=== PATIENT | female | born 1980 | race Caucasian/White ===

== ENCOUNTER 2016-10-30 20:26 | Emergency (ER) | payer BC ==
[2016-10-30 21:19] LABS: URINE APPEARANCE CLEAR; URINE BILIRUBIN NEGATIVE (NEGATIVE); URINE BLOOD TRACE-I (NEGATIVE); URINE COLOR YELLOW; URINE GLUCOSE (UA) NEGATIVE (NEGATIVE); URINE KETONE NEGATIVE (NEGATIVE); URINE LEUKOCYTE ESTERASE SMALL (NEGATIVE); URINE NITRITE NEGATIVE (NEGATIVE); URINE PROTEIN NEGATIVE (NEGATIVE); URINE UROBILINOGEN 0.2 E.U./dL (0.20 - 1.00)
[2016-10-30 21:28] LABS: BASO % 0.4 % (0-6); EOS % 1.7 % (0-6); GRAN % 59.9 % (47-80); HEMATOCRIT 40.2 % (35.0-47.0); HEMOGLOBIN 14.4 gm/dl (11.6-16.0); LYMPH % 31.3 % (16-45); MEAN CELL VOLUME 85.4 fl (81-97); MEAN CORPUSCULAR HEMOGLOBIN 30.6 pg (27-33); MEAN CORPUSCULAR HGB CONC 35.8 g/dl (32-36); MEAN PLATELET VOLUME 9.1 fl (7.4-10.4); MONO % 6.7 % (0-9); PLATELET COUNT 297 K/uL (130-400); RED BLOOD COUNT 4.71 M/uL (3.80-5.40); RED CELL DISTRIBUTION WIDTH 12.6 % (11.5-14.5)
[2016-10-30 21:29] LABS: HCG,QUALITATIVE URINE NEGATIVE (NEGATIVE); URINE BACTERIA FEW; URINE RBC 0 - 2 (NONE SEEN); URINE WBC 0 - 2 (0-2/hpf)
[2016-10-30] MEDS ORDERED: MORPHINE SULFATE 5 MG/ML PFS IVP ONE (21:29)
[2016-10-30] MEDS ORDERED: ONDANSETRON HCL IV 4 MG/2 ML VIAL IVP ONE (21:29)
[2016-10-30 21:39] LABS: ANION GAP 9.7 (7-16); CARBON DIOXIDE 20.3 mmol/L (22-30); CREATININE 1.2 mg/dL (0.52-1.04)
[2016-10-30] MEDS ORDERED: 0.9 % SODIUM CHLORIDE 1,000 ML BAG IV ONE (21:39)
--- NOTE | 2016-10-30 21:42 | Emergency Department Record ---
History of Present Illness - General Chief complaint: Female Urogenital Problem Stated complaint: L OVARY AREA PAIN Time Seen by Provider: 10/30/16 21:01 Source: Patient Mode of Arrival: Ambulatory Limitations: No limitations - History of Present Illness Initial comments: pt has been having back pain for 2 days and is now having llq pain as well. she us unsure if they are related. MD Complaint: Pelvic pain Onset/Timin -: Days(s) Location: LLQ Radiation: L flank Severity: Severe Quality: Dull, Sharp Consistency: Constant, Intermittent Improves with: None Worsens with: None Patient : No Associated Symptoms: Nausea/vomiting, Vaginal bleeding, Other (back pain) - Related Data Sexually active: Yes : 3 Para: 2 A: 2 Home Medications Medication Instructions Recorded Confirmed Last Taken No Home Med [NO HOME MEDS] 10/30/16 10/30/16 Unknown Allergies Allergy/AdvReac Type Severity Reaction Status Date / Time hydromorphone HCl Allergy anaphalaxis Unverified 06/09/16 14:58 [From Dilaudid] erythromycin base AdvReac Mild shaking Unverified 06/09/16 14:58 cephalexin monohydrate AdvReac does not Unverified 06/09/16 14:58 [From Keflex] work Penicillins AdvReac did not Unverified 06/09/16 14:58 work Travel Screening - Travel/Exposure Within Last 30 Days Have you traveled within the last 30 days?: No Review of Systems Reviewed: No additional complaints except as noted below Constitutional: Reports: As per HPI. Denies: Chills, Fever, Malaise, Night sweats, Weakness, Weight change Eyes: Reports: As per HPI. Denies: Eye discharge, Eye pain, Photophobia, Vision change ENT: Reports: As per HPI. Denies: Congestion, Dental pain, Ear pain, Epistaxis , Hearing loss, Throat pain Respiratory: Reports: As per HPI. Denies: Cough, Dyspnea, Hemoptysis, Stridor, Wheezes Cardiovascular: Reports: As per HPI. Denies: Arrhythmia, Chest pain, Dyspnea on exertion, Edema, Murmurs, Orthopnea, Palpitations, Paroxysmal nocturnal dyspnea, Rheumatic Fever, Syncope Endocrine: Reports: As per HPI. Denies: Fatigue, Heat or cold intolerance, Polydipsia, Polyuria Gastrointestinal: Reports: As per HPI. Denies: Abdominal pain, Constipation, Diarrhea, Hematemesis, Hematochezia, Melena, Nausea, Vomiting Genitourinary: Reports: As per HPI. Denies: Abnormal menses, Discharge, Dyspareunia, Dysuria, Frequency, Hematuria, Incontinence, Retention, Urgency Musculoskeletal: Reports: As per HPI. Denies: Arthralgia, Back pain, Gout, Joint swelling, Myalgia, Neck pain Skin: Reports: As per HPI. Denies: Bruising, Change in color, Change in hair/ nails, Lesions, Pruritus, Rash Neurological: Reports: As per HPI. Denies: Abnormal gait, Confusion, Headache, Numbness, Paresthesias, Seizure, Tingling, Tremors, Vertigo, Weakness Psychiatric: Reports: As per HPI. Denies: Anxiety, Auditory hallucinations, Depression, Homicidal thoughts, Suicidal thoughts, Visual hallucinations Hematological/Lymphatic: Reports: As per HPI. Denies: Anemia, Blood Clots, Easy bleeding, Easy bruising, Swollen glands Past Medical History - SOCIAL HISTORY Smoking Status: Never smoker Alcohol Use: None Drug Use: None - [employer] History : 3 Para: 2 A: 2 - RESPIRATORY Hx Respiratory Disorders: Yes Comment:: Vocal Cord dysfunction - CARDIOVASCULAR Hx Cardio Disorders: No - NEURO Hx Neuro Disorders: Yes Hx Headaches: Yes (migraines) - GI Hx GI Disorders: No - Hx Genitourinary Disorders: Yes - ENDOCRINE Hx Endocrine Disorders: No - MUSCULOSKELETAL Hx Musculoskeletal Disorders: No - PSYCH Hx Psych Problems: No - HEMATOLOGY/ONCOLOGY Hx Hematology/Oncology Disorders: No Family Medical History Any Significant Family History?: Yes Family Hx Comment (NOT TO BE USED IN PLACE OF ITEMS BELOW): sister with VCD Hx Cancer: Father, Grandparents Hx Diabetes: Mother, Grandparents Hx Heart Disease: Mother, Grandparents Physical Exam - General General Appearance: Alert, Oriented x3, Cooperative, Mild distress - Head Head exam: Normal inspection - Eye Eye exam: Normal appearance, PERRL, EOMI Pupils: Normal accommodation - ENT ENT exam: Normal exam, Mucous membranes moist, Normal external ear exam, Normal orophraynx Ear exam: Normal external inspection. negative: External canal tenderness Nasal Exam: Normal inspection. negative: Discharge, Sinus tenderness Mouth exam: Normal external inspection, Tongue normal Teeth exam: Normal inspection. negative: Dental caries Throat exam: Normal inspection. negative: Tonsillar erythema, Tonsillar exudate - Neck Neck exam: Normal inspection, Full ROM. negative: Tenderness - Respiratory Respiratory exam: Normal lung sounds bilaterally. negative: Respiratory distress - Cardiovascular Cardiovascular Exam: Normal rhythm, Normal heart sounds, Tachycardia - GI/Abdominal GI/Abdominal exam: Soft, Normal bowel sounds, Tenderness (llq) - Rectal Rectal exam: Deferred - exam: Deferred - Extremities Extremities exam: Normal inspection, Full ROM, Normal capillary refill. negative: Tenderness - Back Back exam: Reports: Normal inspection, Full ROM. Denies: Muscle spasm, Rash noted, Tenderness - Neurological Neurological exam: Alert, CN II-XII intact, Normal gait, Oriented X3 - Psychiatric Psychiatric exam: Normal affect, Normal mood - Skin Skin exam: Dry, Intact, Normal color, Warm Course Vital Signs 10/30/16 20:36 Temperature 98.6 F Pulse Rate [ 107 H Pulse Ox Probe] Respiratory 16 Rate Blood Pressure 130/95 [Left Arm] Pulse Ox 97 - Reevaluation(s) Reevaluation #1: 10/30/16 23:14 pt is doing better Medical Decision Making - Lab Data Result diagrams: 10/30/16 21:26 10/30/16 21:26 Lab Results 10/30/16 10/30/16 Range/Units 21:20 21:26 WBC 12.0 (4.2-12.2) K/uL RBC 4.71 (3.80-5.40) M/uL Hgb 14.4 (11.6-16.0) gm/dl Hct 40.2 (35.0-47.0) % MCV 85.4 (81-97) fl MCH 30.6 (27-33) pg MCHC 35.8 (32-36) g/dl RDW 12.6 (11.5-14.5) % Plt Count 297 (130-400) K/uL MPV 9.1 (7.4-10.4) fl Gran % 59.9 (47-80) % Lymphocytes % 31.3 (16-45) % Monocytes % 6.7 (0-9) % Eosinophils % 1.7 (0-6) % Basophils % 0.4 (0-6) % Urine Color Yellow Urine Appearance Clear Urine pH 6.0 (5.0-8.0) Ur Specific [place] 1.020 (1.002-1.030) Urine Protein Negative (NEGATIVE) Urine Glucose (UA) Negative (NEGATIVE) Urine Ketones Negative (NEGATIVE) Urine Blood Trace-i (NEGATIVE) Urine Nitrite Negative (NEGATIVE) Urine Bilirubin Negative (NEGATIVE) Urine Urobilinogen 0.2 (0.20 - 1.00) E.U./dL Ur Leukocyte Esterase Small H (NEGATIVE) Urine RBC 0 - 2 (NONE SEEN) Urine WBC 0 - 2 (0-2/hpf) Ur Epithelial Cells 7 - 10 (FEW) Urine Bacteria Few Urine HCG, Qual Negative (NEGATIVE) Disposition Disposition: Discharge Clinical Impression: LLQ abdominal pain Back pain Qualifiers: Back pain location: low back pain Chronicity: acute Back pain laterality: left Sciatica presence: without sciatica Qualified Code(s): M54.5 - Low back pain Disposition: Home, Self-Care Condition: (1) Good Instructions: Abdominal Pain (ED), Low Back Strain (ED) Additional Instructions: follow up with family doctor. return sooner if worse. moist heat to back. have kidney function rechecked Forms: Patient Portal Access
[2016-10-30] MEDS ORDERED: KETOROLAC 30 MG/ML VIAL IVP ONE ×2 (23:11→23:17)
[2016-10-30] MEDS ORDERED: SODIUM CHLORIDE 0.9% 500 ML IV SCH (23:30)
--- NOTE | 2016-10-31 02:48 | CT SCAN REPORT ---
DATE: 10/30/2016. EXAM: CT SCAN OF THE ABDOMEN AND PELVIS WITHOUT CONTRAST. HISTORY: Lower pelvic and back pain. TECHNIQUE: Sequential axial images were obtained from the diaphragms through the ischiorectal fossa without intravenous or oral contrast administration. FINDINGS: The visualized lung bases appear normal. There is a calcified granuloma in the left lung base. The gallbladder has been surgically removed. The appendix has been surgically removed. There is a nonopacified liver. The pancreas and spleen appear normal. The adrenal glands appear normal. There are nonobstructing calculi in the left kidney. No CT findings suggestive of obstructive uropathy. The urinary bladder appears normal. The uterus and adnexal structures appear normal. The small bowel appears normal. There are small mesenteric lymph nodes. Findings are likely related to gastroenteritis. The osseus structures are normal. IMPRESSION: 1. SMALL MESENTERIC LYMPH NODES. FINDINGS ARE LIKELY RELATED TO GASTROENTERITIS. 2. THE APPENDIX AND GALLBLADDER HAVE BEEN SURGICALLY REMOVED. 3. NONOBSTRUCTING CALCULI IN THE LEFT KIDNEY. JOB NUMBER: [id number] MTDD
== END 2016-10-30 23:42 | disposition home or self-care (01) ==
LOC: ER 20:26
DX: R10.32 Left lower quadrant pain (principal); R11.2 Nausea with vomiting, unspecified; M54.5 Low back pain; N93.9 Abnormal uterine and vaginal bleeding, unspecified
CPT/HCPCS: 99284 ×2; 96374; 96375; 85025; 80048; 81001; 81025; 74176; J1885; J2405; J2270; J7030

== ENCOUNTER 2016-12-27 21:01 | Emergency (ER) | payer BC ==
[2016-12-27] MEDS ORDERED: IBUPROFEN 600 MG TABLET PO ONE (21:11)
--- NOTE | 2016-12-27 21:16 | Emergency Department Record ---
History of Present Illness - General Chief Complaint: Ankle/Foot Injury Stated Complaint: RT FOOT INJURY Time Seen by Provider: 12/27/16 21:10 Source: Patient Mode of Arrival: Wheelchair Limitations: No limitations - History of Present Illness Initial Comments: 36 yo female presents to ED with a CC of right foot pain following a trip and fall at home [employer]. Patient denies other injury, and denies health problems at her baseline. MD Complaint: Foot injury Onset/Timin -: Hour(s) Injury: Foot: Right Type of Injury: Blunt Place: Home Severity scale (1-10): 5 Improves With: Nothing Worsens With: Nothing Associated Symptoms: Ambulatory, Able to partially bear weight - Related Data Previous Rx's Medication Instructions Recorded Hydrocodone/Acetaminophen [Letona 1 each PO Q6H PRN #10 tablet 12/27/16 5-325 Tablet] Allergies Allergy/AdvReac Type Severity Reaction Status Date / Time hydromorphone HCl Allergy anaphalaxis Verified 12/27/16 21:08 [From Dilaudid] erythromycin base AdvReac Mild shaking Verified 12/27/16 21:08 cephalexin monohydrate AdvReac does not Verified 12/27/16 21:08 [From Keflex] work Penicillins AdvReac did not Verified 12/27/16 21:08 work Travel Screening - Travel/Exposure Within Last 30 Days Have you traveled within the last 30 days?: No - Travel/Exposure Within Last Year Have you traveled outside the [place] in the last year?: No - Additonal Travel Details Have you been exposed to anyone with a communicable illness?: No - Travel Symptoms Symptom Screening: None Review of Systems Constitutional: Denies: Chills, Fever, Malaise, Night sweats Eyes: Denies: Eye discharge, Eye pain ENT: Denies: Congestion, Ear pain, Epistaxis Respiratory: Denies: Cough, Dyspnea, Hemoptysis Cardiovascular: Denies: Chest pain, Dyspnea on exertion Endocrine: Denies: Fatigue, Heat or cold intolerance Gastrointestinal: Denies: Abdominal pain, Nausea, Vomiting Genitourinary: Denies: Incontinence, Retention Musculoskeletal: Reports: Arthralgia (right great toe pain). Denies: Back pain , Gout, Joint swelling Skin: Reports: Bruising. Denies: Change in color Neurological: Denies: Abnormal gait, Confusion, Headache, Seizure Psychiatric: Denies: Anxiety Hematological/Lymphatic: Denies: Anemia, Blood Clots Past Medical History - SOCIAL HISTORY Smoking Status: Never smoker Alcohol Use: None Drug Use: None - RESPIRATORY Hx Respiratory Disorders: Yes Comment:: Vocal Cord dysfunction - CARDIOVASCULAR Hx Cardio Disorders: No - NEURO Hx Neuro Disorders: Yes Hx Headaches: Yes (migraines) - GI Hx GI Disorders: No - Hx Genitourinary Disorders: Yes - ENDOCRINE Hx Endocrine Disorders: No - MUSCULOSKELETAL Hx Musculoskeletal Disorders: No - PSYCH Hx Psych Problems: No - HEMATOLOGY/ONCOLOGY Hx Hematology/Oncology Disorders: No Family Medical History Any Significant Family History?: Yes Family Hx Comment (NOT TO BE USED IN PLACE OF ITEMS BELOW): sister with VCD Hx Cancer: Father, Grandparents Hx Diabetes: Mother, Grandparents Hx Heart Disease: Mother, Grandparents Physical Exam - General General Appearance: Alert, Oriented x3, Cooperative, No acute distress Limitations: No limitations - Head Head exam: Atraumatic, Normocephalic, Normal inspection Head exam detail: negative: Abrasion, Contusion, Contreras's sign, General tenderness, Hematoma, Laceration - Eye Eye exam: Normal appearance. negative: Conjunctival injection, Periorbital swelling, Periorbital tenderness, Scleral icterus - ENT Ear exam: negative: Auricular hematoma, Auricular trauma Nasal Exam: negative: Active bleeding, Discharge, Dried blood, Foreign body Mouth exam: negative: Drooling, Laceration, Tongue elevation - Neck Neck exam: Normal inspection. negative: Meningismus, Tenderness - Respiratory Respiratory exam: Normal lung sounds bilaterally. negative: Rales, Respiratory distress, Rhonchi, Stridor - Cardiovascular Cardiovascular Exam: Regular rate, Normal rhythm, Normal heart sounds Peripheral Pulses: 3+: Dorsalis Pedis (R) - GI/Abdominal GI/Abdominal exam: Soft. negative: Rebound, Rigid, Tenderness - Rectal Rectal exam: Deferred - exam: Deferred - Extremities Extremities exam: Full ROM, Tenderness, Other (Mild ecchymosis and TTP over the dorsum of the base of the right great toe, extensor tendon intact.). negative: Calf tenderness, Pedal edema - Back Back exam: Denies: CVA tenderness (R), CVA tenderness (L) - Neurological Neurological exam: Alert, Normal gait, Oriented X3 - Psychiatric Psychiatric exam: Normal affect, Normal mood - Skin Skin exam: Normal color. negative: Abrasion Type of lesion: negative: abrasion Course Vital Signs 12/27/16 21:04 Pulse Rate 75 Respiratory 20 Rate Blood Pressure 134/97 Pulse Ox 96 - Reevaluation(s) Reevaluation #1: 12/27/16 21:32 Right Foot: Right comminuted proximal phalanx fracture great toe. Patient was updated on her radiology results and appears stable for discharge with a post-op shoe and analgesia for her fracture. Will refer the patient to see Dr. Angulo next week in the [facility] next week. Disposition Disposition: Discharge Clinical Impression: Fracture of great toe of right foot Qualifiers: Encounter type: initial encounter Fracture type: closed Phalanx: proximal Fracture alignment: nondisplaced Qualified Code(s): S92.414A - Nondisplaced fracture of proximal phalanx of right great toe, initial encounter for closed fracture Disposition: Home, Self-Care Condition: (2) Stable Instructions: Toe Fracture (ED) Additional Instructions: Return to ED if your symptoms worsen or if you have any concerns. Follow-up with Dr. Angulo in the [facility] for further evaluation of your toe fracture. Letona as directed. Prescriptions: Hydrocodone/Acetaminophen [Letona 5-325 Tablet] 1 each PO Q6H PRN #10 tablet PRN Reason: Pain - Moderate (5-7) Referrals: JUDY ANGULO [DOCTOR OF PODIATRY MEDICINE] - [facility] [Provider Group] Forms: Patient Portal Access Time of Disposition: 21:16 Quality - Quality Measures Quality Measures: N/A - Blood Pressure Screening Does Patient Have Any of the Following: No Blood Pressure Classification: Hypertensive Reading Systolic Measurement: 134 Diastolic Measurement: 97 Screening for High Blood Pressure: < First Hypertensive BP, F/U Documented > [ G8950] First Hypertensive Follow-up Interventions: Referral to alternative/primary care provider.
[2016-12-27] MEDS ORDERED: HYDROCODONE/APAP 5/325MG TABLET PO ONE (21:30)
--- NOTE | 2016-12-28 13:41 | RADIOLOGY REPORT ---
EXAM: RIGHT FOOT, THREE VIEWS HISTORY: RIGHT GREAT TOE PAIN POST TRAUMA. TECHNIQUE: Three views of the right foot were obtained. Comparison: None. Encounter: Initial. FINDINGS: There is a comminuted spiral type fracture of the first proximal phalanx. The proximal fracture line appears to involve the dorsal medial edge of the articular surface. A distal intraarticular component would be difficult to exclude. No gross displacement nor angulation. No other fracture is seen nor is there dislocation. The articular relations are otherwise maintained. IMPRESSION: COMMINUTED SPIRAL TYPE FRACTURE OF THE FIRST PROXIMAL PHALANX WITH QUESTIONABLE PROXIMAL COMPONENT INVOLVING THE DORSAL MEDIAL ARTICULAR SURFACE AND A DISTAL INTRAARTICULAR COMPONENT CAN ALSO NOT BE EXCLUDED. NO GROSS DISPLACEMENT NOR ANGULATION. JOB NUMBER: [id number] MTDD
== END 2016-12-27 21:50 | disposition home or self-care (01) ==
LOC: ER 21:01
DX: S92.414A Nondisplaced fracture of proximal phalanx of right great toe, initial encounter for closed fracture (principal); W01.0XXA Fall on same level from slipping, tripping and stumbling without subsequent striking against object, initial encounter; Y92.009 Unspecified place in unspecified non-institutional (private) residence as the place of occurrence of the external cause
CPT/HCPCS: 99283

== ENCOUNTER 2017-02-23 10:18 | Emergency (ER) | payer BC ==
[2017-02-23] MEDS ORDERED: ONDANSETRON HCL IV 4 MG/2 ML VIAL IV ONE (10:50)
[2017-02-23] MEDS ORDERED: SODIUM CHLORIDE 0.9% 500 ML IV ONE (10:50)
[2017-02-23] MEDS ORDERED: ACETAMINOPHEN 325 MG TAB PO ONE (10:56)
--- NOTE | 2017-02-23 11:01 | Emergency Department Record ---
History of Present Illness - General Chief complaint: Nausea, Vomiting, Diarrhea Stated complaint: NAUSEA Time Seen by Provider: 02/23/17 10:45 Source: Patient Mode of Arrival: Ambulatory Limitations: No limitations - History of Present Illness Initial comments: The patient is here due to not feeling well for a few days. She recently had IVF performed in [place] and initially was told the embryo's implanted but then 4 days ago had an HCG that went to 21 from just over 100 a few days before. Due to that she was taken off all of her medicines. Now for the last few days she has had nausea, body aches, weakness, a mild to mod ALEJANDRO all over that has gradually worsened and just does not feel well. There has been no fever, vomiting, diarrhea or any abdominal pain or bleeding. The patient would like to know if she is still . MD complaint: Nausea Onset/Timin -: Week(s) Severity scale (1-10): 10 Quality: Aching Associated Symptoms: Headaches, Nausea/vomiting - Related Data Previous Rx's Medication Instructions Recorded Ondansetron [Zofran Odt] 4 mg SL .Q4-6H PRN #12 tab.rapdis 02/23/17 Allergies Allergy/AdvReac Type Severity Reaction Status Date / Time hydromorphone HCl Allergy anaphalaxis Verified 12/27/16 21:08 [From Dilaudid] erythromycin base AdvReac Mild shaking Verified 12/27/16 21:08 cephalexin monohydrate AdvReac does not Verified 12/27/16 21:08 [From Keflex] work Penicillins AdvReac did not Verified 12/27/16 21:08 work Travel Screening - Travel/Exposure Within Last 30 Days Have you traveled within the last 30 days?: Yes Location Detail:: [place] - Travel/Exposure Within Last Year Have you traveled outside the [place] in the last year?: No - Additonal Travel Details Have you been exposed to anyone with a communicable illness?: No - Travel Symptoms Symptom Screening: None Review of Systems Constitutional: Denies: Chills, Fever Eyes: Denies: Eye discharge ENT: Denies: Congestion, Other Respiratory: Denies: Cough, Dyspnea Past Medical History - SOCIAL HISTORY Smoking Status: Never smoker Alcohol Use: None Drug Use: None - RESPIRATORY Hx Respiratory Disorders: Yes Comment:: Vocal Cord dysfunction - CARDIOVASCULAR Hx Cardio Disorders: No - NEURO Hx Neuro Disorders: Yes Hx Headaches: Yes (migraines) - GI Hx GI Disorders: No - Hx Genitourinary Disorders: Yes - ENDOCRINE Hx Endocrine Disorders: No - MUSCULOSKELETAL Hx Musculoskeletal Disorders: No - PSYCH Hx Psych Problems: No - HEMATOLOGY/ONCOLOGY Hx Hematology/Oncology Disorders: No Family Medical History Any Significant Family History?: No Family Hx Comment (NOT TO BE USED IN PLACE OF ITEMS BELOW): sister with VCD Hx Cancer: Father, Grandparents Hx Diabetes: Mother, Grandparents Hx Heart Disease: Mother, Grandparents Physical Exam - General General Appearance: Alert, Oriented x3, Cooperative, No acute distress - Head Head exam: Atraumatic, Normocephalic, Normal inspection - Eye Eye exam: Normal appearance, PERRL - ENT Throat exam: Normal inspection. negative: Tonsillar erythema, Tonsillar exudate - Neck Neck exam: Normal inspection, Full ROM. negative: Meningismus, Tenderness - Respiratory Respiratory exam: Normal lung sounds bilaterally. negative: Respiratory distress - Cardiovascular Cardiovascular Exam: Regular rate, Normal rhythm, Normal heart sounds - GI/Abdominal GI/Abdominal exam: Soft, Normal bowel sounds. negative: Tenderness - Extremities Extremities exam: Normal inspection, Full ROM, Normal capillary refill. negative: Tenderness - Neurological Neurological exam: Alert, Normal gait. negative: Abnormal gait, Motor sensory deficit - Psychiatric Psychiatric exam: negative: Agitated, Anxious - Skin Skin exam: negative: Rash Course Vital Signs 02/23/17 10:30 Temperature 98.9 F Pulse Rate 82 Respiratory 18 Rate Blood Pressure 120/86 Pulse Ox 97 - Reevaluation(s) Reevaluation #1: The patient is doing well. She states her ALEJANDRO is improved and she denies any abdominal pain, nausea, vomiting, or back pain. She feels ready for home. 02/23/17 11:59 Medical Decision Making - Data Complexity MDM Data: Labs Ordered and/or Reviewed - Lab Data Result diagrams: 02/23/17 10:52 02/23/17 10:52 Disposition Disposition: Discharge Clinical Impression: Nausea alone Disposition: Home, Self-Care Condition: (1) Good Instructions: Acute Nausea and Vomiting (ED) Additional Instructions: Please rest and drink plenty of fluids. Use the Zofran for nausea. Please return to the ER for any worsening symptoms. Prescriptions: Ondansetron [Zofran Odt] 4 mg SL .Q4-6H PRN #12 tab.rapdis PRN Reason: Nausea Forms: Patient Portal Access Time of Disposition: 12:01 Quality - Quality Measures Quality Measures: N/A - Blood Pressure Screening View Details: Yes Does Patient Have Any of the Following: No Blood Pressure Classification: Hypertensive Reading Systolic Measurement: 125 Diastolic Measurement: 94 Screening for High Blood Pressure: < Pre-Hypertensive BP, F/U Documented > [ G8950] Pre-Hypertensive Follow-up Interventions: Referral to alternative/primary care provider.
[2017-02-23 11:08] LABS: BASO % 0.8 % (0-6); EOS % 3.1 % (0-6); GRAN % 47.8 % (47-80); HEMATOCRIT 43.5 % (35.0-47.0); HEMOGLOBIN 15.1 gm/dl (11.6-16.0); LYMPH % 40.5 % (16-45); MEAN CELL VOLUME 88.2 fl (81-97); MEAN CORPUSCULAR HEMOGLOBIN 30.6 pg (27-33); MEAN CORPUSCULAR HGB CONC 34.7 g/dl (32-36); MEAN PLATELET VOLUME 9.3 fl (7.4-10.4); MONO % 7.8 % (0-9); PLATELET COUNT 342 K/uL (130-400); RED BLOOD COUNT 4.93 M/uL (3.80-5.40); RED CELL DISTRIBUTION WIDTH 13.4 % (11.5-14.5); WHITE BLOOD COUNT W/O DIFF 8.3 K/uL (4.2-12.2)
[2017-02-23 11:12] LABS: URINE APPEARANCE CLEAR; URINE BILIRUBIN NEGATIVE (NEGATIVE); URINE BLOOD MODERATE (NEGATIVE); URINE COLOR YELLOW; URINE GLUCOSE (UA) NEGATIVE (NEGATIVE); URINE KETONE NEGATIVE (NEGATIVE); URINE LEUKOCYTE ESTERASE NEGATIVE (NEGATIVE); URINE NITRITE NEGATIVE (NEGATIVE); URINE PROTEIN NEGATIVE (NEGATIVE); URINE UROBILINOGEN 0.2 E.U./dL (0.20 - 1.00)
[2017-02-23 11:20] LABS: URINE BACTERIA FEW; URINE WBC 0 - 2 (0-2/hpf)
[2017-02-23 11:27] LABS: ALB/GLOB RATIO 1.3 (1.1-1.8); ALKALINE PHOSPHATASE 59 U/L (35-104); ALT/SGPT 18 U/L (<33); AST/SGOT 15 U/L (10.0-35.0); BLOOD UREA NITROGEN 11 mg/dL (6-20); CREATININE 0.8 mg/dL (0.5-0.9); EST GLOMERULAR FILTRATION RATE > 60 mL/min; GLUCOSE,RANDOM 89 mg/dL (74-109); TOTAL PROTEIN 7.1 g/dL (6.6-8.7)
[2017-02-23] MEDS ORDERED: KETOROLAC 30 MG/ML VIAL IVP ONE (11:32)
== END 2017-02-23 12:15 | disposition home or self-care (01) ==
LOC: ER 10:18
DX: R10.0 Acute abdomen (principal); R53.1 Weakness; R51 Headache; R19.7 Diarrhea, unspecified; R52 Pain, unspecified
CPT/HCPCS: 99284 ×2; 96374; 96361; 85025; 86140; 80053; 81001; 84703; J1885; J2405